=== PATIENT | female | born 1940 | race Two or more races ===

== ENCOUNTER 2022-03-13 12:27 | Inpatient (IN) | payer MEDICARE, MEDICAID ==
[~2022-03-13] VITALS: Ht 167.6 cm; Wt 78.1 kg
[2022-03-13] MEDS ORDERED: IPRATROPIUM BROM 0.5 MG/2.5ML INH SOL NEB ONE (13:00)
[2022-03-13] MEDS ORDERED: MAGNESIUM SULFATE 1GM/100ML 100 ML IV ONE (13:00)
[2022-03-13] MEDS ORDERED: ALBUTEROL SULF 2.5 MG/0.5ML(0.5%) NEB SOLN NEB ONE (13:00)
[2022-03-13] MEDS ORDERED: methylPREDNISolone SOD SUCC 125 MG/2 ML VL IV ONE (13:00)
[2022-03-13] MEDS ORDERED: ALBUTEROL MEDNEB 2.5 mg/3ml NEB ONE (13:13)
[2022-03-13 13:49] LABS: Basophils # (auto) 0.1 10 ^3/uL (0-0.2); Basophils % (auto) 1.1 % (0.0-2.0); Eosinophils # (auto) 0.1 10 ^3/uL (0-0.8); Eosinophils % (auto) 1.2 % (0.0-7.0); Hemoglobin 9.8 g/dL (12.2-16.2); Lymphocytes # (auto) 1.2 10 ^3/uL (0.4-5.4); Lymphocytes % (auto) 10.8 % (10.0-50.0); Mean Corpuscular Hemoglobin 28.3 pg (28.0-32.0); Mean Corpuscular Hgb Conc. 31.7 g/dL (32.0-36.0); Monocytes # (auto) 1.2 10 ^3/uL (0-1.3); Monocytes % (auto) 10.2 % (0.0-12.0); Neutrophils # (auto) 8.8 10 ^3/uL (1.6-8.6); Neutrophils % (auto) 76.7 % (37.0-80.0); Nucleated Red Blood Cells % 0.1 %; Red Blood Cells 3.48 10^6/uL (4.0-5.20); White Blood Cell 11.4 10^3/uL (4.4-10.8)
[2022-03-13 14:02] LABS: Calcium 8.9 mg/dL (8.5-10.1); Potassium 4.6 mmol/L (3.5-5.1)
[2022-03-13 14:05] LABS: Albumin 3.1 g/dL (3.4-5.0); BUN/Creatinine Ratio 17.1
[2022-03-13 14:08] LABS: Bilirubin, Total 0.5 mg/dL (0.2-1.0); Total Protein 6.6 g/dL (6.4-8.2)
[2022-03-13] MEDS ORDERED: NITROGLYCERIN 0.4 MG SL TAB SL PRN (14:45)
[2022-03-13] MEDS ORDERED: MORPHINE SULFATE INJ 2 MG/ml SYRG IV PRN (14:45)
[2022-03-13 17:13] LABS: Urine Bacteria NONE SEEN /hpf (None Seen); Urine Blood Negative /uL (Negative); Urine Hyaline Cast FEW /lpf (0 - 2); Urine Specific Gravity 1.018 (1.001-1.035); Urine WBC 3 /hpf (0 - 5)
[2022-03-13] MEDS: Ensure Enlive Strawberry 8oz Bottle PO SCH (18:00)
[2022-03-13] MEDS: IPRATROPIUM BROM 0.5 MG/2.5ML INH SOL NEB SCH (18:37)
[2022-03-13] MEDS: LEVALBUTEROL HCL 1.25 MG/3 ML NEB NEB SCH (18:37)
[2022-03-13] MEDS: SACUBITRIL-VALSARTAN 24mg/26mg TAB PO SCH (22:00)
[2022-03-13] MEDS: RANOLAZINE ER 500 MG TAB PO SCH (22:00)
[2022-03-13] MEDS: ENOXAPARIN SOD 100 MG/1 ML SYRINGE SC SCH (22:00)
[2022-03-13] MEDS: methylPREDNISolone SOD SUCC 40 MG/ML VL IV SCH (22:00)
[2022-03-13] MEDS: METOPROLOL TARTRATE 25 MG TAB PO SCH (22:00)
[2022-03-13] MEDS: BUDESONIDE (INHALATION) 0.5 MG/2 ML NEB NEB SCH (23:13)
[2022-03-14] MEDS: IPRATROPIUM BROM 0.5 MG/2.5ML INH SOL NEB SCH ×5 (00:32→18:56)
[2022-03-14] MEDS: LEVALBUTEROL HCL 1.25 MG/3 ML NEB NEB SCH ×5 (00:32→18:56)
[2022-03-14 00:34] VITALS: BP 98/39
[2022-03-14] MEDS: BUDESONIDE (INHALATION) 0.5 MG/2 ML NEB NEB SCH ×2 (06:20→18:57)
[2022-03-14] MEDS: Ensure Enlive Strawberry 8oz Bottle PO SCH ×3 (09:16→18:32)
[2022-03-14] MEDS: CLOPIDOGREL BISULFATE 75 MG TAB PO SCH (09:27)
[2022-03-14] MEDS: SACUBITRIL-VALSARTAN 24mg/26mg TAB PO SCH (09:27)
[2022-03-14] MEDS: methylPREDNISolone SOD SUCC 40 MG/ML VL IV SCH (09:27)
[2022-03-14] MEDS: RANOLAZINE ER 500 MG TAB PO SCH ×2 (09:27→21:34)
[2022-03-14] MEDS: PANTOPRAZOLE 40 MG TAB PO SCH (09:27)
[2022-03-14] MEDS: ENOXAPARIN SOD 100 MG/1 ML SYRINGE SC SCH ×2 (09:28→21:34)
[2022-03-14] MEDS: METOPROLOL TARTRATE 25 MG TAB PO SCH ×2 (09:29→09:34)
[2022-03-14] MEDS ORDERED: FUROSEMIDE 20 MG/2 ML VIAL IV SCH (10:00)
[2022-03-14 11:28] LABS: BUN/Creatinine Ratio 17.6; Calcium 8.7 mg/dL (8.5-10.1); Potassium 4.4 mmol/L (3.5-5.1)
[2022-03-14] MEDS ORDERED: cefTRIAXone 1GM/50ML D5W 50 ML IV ONE (13:15)
[2022-03-14] MEDS ORDERED: AZITHROMYCIN 250 MG TAB PO ONE (13:15)
[2022-03-14 13:18] LABS: Basophils # (auto) 0 10 ^3/uL (0-0.2); Basophils % (auto) 0.5 % (0.0-2.0); Eosinophils # (auto) 0 10 ^3/uL (0-0.8); Hemoglobin 9.1 g/dL (12.2-16.2); Lymphocytes # (auto) 0.3 10 ^3/uL (0.4-5.4); Mean Corpuscular Hgb Conc. 33.6 g/dL (32.0-36.0); Mean Corpuscular Volume 89.3 fL (80.0-100.0); Monocytes # (auto) 0.4 10 ^3/uL (0-1.3); Monocytes % (auto) 5.4 % (0.0-12.0); Neutrophils % (auto) 89.1 % (37.0-80.0); Nucleated Red Blood Cells % 0.1 %; Red Blood Cells 3.02 10^6/uL (4.0-5.20); Red Cell Distribution Width 14.3 % (11.8-14.3); White Blood Cell 6.7 10^3/uL (4.4-10.8)
[2022-03-14 17:00] VITALS: BP 104/45
[2022-03-14] MEDS ORDERED: NEBI5TAB2 PO (17:24)
[2022-03-14] MEDS ORDERED: CLOP75TA70 PO (17:24)
[2022-03-14] MEDS ORDERED: SACU1TAB PO (17:24)
[2022-03-14] MEDS ORDERED: RANO500T2 PO (17:24)
[2022-03-14 22:00] VITALS: BP 94/36
[2022-03-14] MEDS ORDERED: methylPREDNISolone SOD SUCC 40 MG/ML VL IV SCH (22:00)
[2022-03-14 22:05] VITALS: BP 99/41
[2022-03-15] MEDS: LEVALBUTEROL HCL 1.25 MG/3 ML NEB NEB SCH ×5 (00:31→18:55)
[2022-03-15] MEDS: IPRATROPIUM BROM 0.5 MG/2.5ML INH SOL NEB SCH ×5 (00:31→18:55)
[2022-03-15 05:00] VITALS: BP 114/44
[2022-03-15] MEDS: BUDESONIDE (INHALATION) 0.5 MG/2 ML NEB NEB SCH ×2 (06:20→18:55)
[2022-03-15 06:30] LABS: Basophils # (auto) 0 10 ^3/uL (0-0.2); Basophils % (auto) 0.1 % (0.0-2.0); Eosinophils # (auto) 0 10 ^3/uL (0-0.8); Hematocrit 27.2 % (36.0-46.0); Hemoglobin 8.8 g/dL (12.2-16.2); Lymphocytes # (auto) 0.5 10 ^3/uL (0.4-5.4); Lymphocytes % (auto) 4.5 % (10.0-50.0); Mean Corpuscular Hemoglobin 28.6 pg (28.0-32.0); Mean Corpuscular Hgb Conc. 32.2 g/dL (32.0-36.0); Mean Corpuscular Volume 88.7 fL (80.0-100.0); Monocytes # (auto) 0.6 10 ^3/uL (0-1.3); Monocytes % (auto) 4.9 % (0.0-12.0); Neutrophils # (auto) 10.8 10 ^3/uL (1.6-8.6); Neutrophils % (auto) 90.5 % (37.0-80.0); Red Blood Cells 3.06 10^6/uL (4.0-5.20); White Blood Cell 11.9 10^3/uL (4.4-10.8)
[2022-03-15 06:54] LABS: Potassium 5.2 mmol/L (3.5-5.1)
[2022-03-15 07:08] LABS: BUN/Creatinine Ratio 31.4; Calcium 8.8 mg/dL (8.5-10.1)
[2022-03-15 09:00] VITALS: BP 104/58
[2022-03-15] MEDS: PANTOPRAZOLE 40 MG TAB PO SCH ×2 (09:46→21:44)
[2022-03-15] MEDS: RANOLAZINE ER 500 MG TAB PO SCH ×2 (09:46→21:43)
[2022-03-15] MEDS: AZITHROMYCIN 250 MG TAB PO SCH (09:46)
[2022-03-15] MEDS: CLOPIDOGREL BISULFATE 75 MG TAB PO SCH (09:46)
[2022-03-15] MEDS: cefTRIAXone 1GM/50ML D5W 50 ML IV SCH (09:47)
[2022-03-15] MEDS: Ensure Enlive Strawberry 8oz Bottle PO SCH ×3 (09:48→18:11)
[2022-03-15] MEDS ORDERED: ENOXAPARIN SOD 80 MG/0.8ML SYRINGE SC SCH (10:00)
[2022-03-15] MEDS ORDERED: predniSONE 5 MG TAB PO ONE (11:00)
[2022-03-15] MEDS ORDERED: SODIUM ZIRCONIUM CYCL 10 GM PAK PO ONE (11:00)
[2022-03-15 13:00] VITALS: BP 99/49
[2022-03-15] MEDS: NEBIVOLOL 2.5 MG TABLET PO SCH (16:30)
[2022-03-15 17:00] VITALS: BP 123/41
[2022-03-15] MEDS ORDERED: SODIUM CHLORIDE 0.9% 500 ML IV ONE (19:30)
[2022-03-15] MEDS ORDERED: dilTIAZem 25 MG/5 ML VIAL IV ONE (19:30)
[2022-03-15] MEDS: ENOXAPARIN SOD 60 MG/0.6 ML SYRINGE SC SCH (21:43)
[2022-03-15 22:00] VITALS: BP 104/63
[2022-03-16] MEDS: BUDESONIDE (INHALATION) 0.5 MG/2 ML NEB NEB SCH ×3 (00:28→18:11)
[2022-03-16] MEDS: LEVALBUTEROL HCL 1.25 MG/3 ML NEB NEB SCH ×4 (00:28→18:11)
[2022-03-16] MEDS: IPRATROPIUM BROM 0.5 MG/2.5ML INH SOL NEB SCH ×4 (00:28→18:10)
[2022-03-16 05:00] VITALS: BP 101/41
[2022-03-16 06:06] LABS: Basophils # (auto) 0 10 ^3/uL (0-0.2); Basophils % (auto) 0.1 % (0.0-2.0); Eosinophils # (auto) 0 10 ^3/uL (0-0.8); Eosinophils % (auto) 0.2 % (0.0-7.0); Hematocrit 26.7 % (36.0-46.0); Hemoglobin 8.6 g/dL (12.2-16.2); Lymphocytes # (auto) 1.3 10 ^3/uL (0.4-5.4); Lymphocytes % (auto) 13.6 % (10.0-50.0); Mean Corpuscular Hemoglobin 29.1 pg (28.0-32.0); Mean Corpuscular Hgb Conc. 32.1 g/dL (32.0-36.0); Mean Corpuscular Volume 90.6 fL (80.0-100.0); Monocytes # (auto) 1.3 10 ^3/uL (0-1.3); Monocytes % (auto) 13.7 % (0.0-12.0); Neutrophils # (auto) 7.1 10 ^3/uL (1.6-8.6); Neutrophils % (auto) 72.4 % (37.0-80.0); Nucleated Red Blood Cells % 0.1 %; Red Blood Cells 2.95 10^6/uL (4.0-5.20); Red Cell Distribution Width 14.8 % (11.8-14.3); White Blood Cell 9.7 10^3/uL (4.4-10.8)
[2022-03-16 06:35] LABS: BUN/Creatinine Ratio 43.8; Calcium 8.6 mg/dL (8.5-10.1)
[2022-03-16 09:00] VITALS: BP 121/39
[2022-03-16] MEDS: ENOXAPARIN SOD 60 MG/0.6 ML SYRINGE SC SCH (10:00)
[2022-03-16] MEDS: PANTOPRAZOLE 40 MG TAB PO SCH (10:00)
[2022-03-16] MEDS: Ensure Enlive Strawberry 8oz Bottle PO SCH ×3 (10:01→18:39)
[2022-03-16] MEDS: cefTRIAXone 1GM/50ML D5W 50 ML IV SCH (10:02)
[2022-03-16] MEDS: predniSONE 5 MG TAB PO SCH (10:02)
[2022-03-16] MEDS: AZITHROMYCIN 250 MG TAB PO SCH (10:03)
[2022-03-16] MEDS: RANOLAZINE ER 500 MG TAB PO SCH ×2 (10:03→21:41)
[2022-03-16] MEDS: CLOPIDOGREL BISULFATE 75 MG TAB PO SCH (10:04)
[2022-03-16] MEDS: NEBIVOLOL 2.5 MG TABLET PO SCH (10:11)
[2022-03-16] MEDS ORDERED: PANTOPRAZOLE 40 MG/10 ML VIAL INJ IV ONE (11:45)
[2022-03-16 12:37] VITALS: BP 101/46
[2022-03-16] MEDS: AMIODARONE HCL 200 MG TAB PO SCH (14:21)
[2022-03-16 17:00] VITALS: BP 110/48
[2022-03-16] MEDS: ATORVASTATIN 20 MG TAB PO SCH (21:41)
[2022-03-16] MEDS: PANTOPRAZOLE 40 MG/10 ML VIAL INJ IV SCH (21:42)
[2022-03-16 22:00] VITALS: BP 119/73
[2022-03-16 23:40] VITALS: BP 119/73
[2022-03-17] VITALS (10 sets, daily range): BP systolic 96–135; BP diastolic 31–82
[2022-03-17] MEDS: IPRATROPIUM BROM 0.5 MG/2.5ML INH SOL NEB SCH ×5 (00:29→18:25)
[2022-03-17] MEDS: LEVALBUTEROL HCL 1.25 MG/3 ML NEB NEB SCH ×5 (00:29→18:25)
[2022-03-17] MEDS: BUDESONIDE (INHALATION) 0.5 MG/2 ML NEB NEB SCH ×2 (06:22→18:25)
[2022-03-17 07:30] LABS: INR 0.96 (0.9-1.15); Partial Thromboplastin Time < 20.0 sec (24.6-33.4)
[2022-03-17 07:32] LABS: Basophils # (auto) 0 10 ^3/uL (0-0.2); Eosinophils # (auto) 0.1 10 ^3/uL (0-0.8); Eosinophils % (auto) 1.7 % (0.0-7.0); Hematocrit 23.9 % (36.0-46.0); Hemoglobin 7.8 g/dL (12.2-16.2); Monocytes # (auto) 0.8 10 ^3/uL (0-1.3)
[2022-03-17 07:35] LABS: Basophils % (auto) 0.3 % (0.0-2.0); Lymphocytes # (auto) 1.2 10 ^3/uL (0.4-5.4); Lymphocytes % (auto) 18.1 % (10.0-50.0); Mean Corpuscular Hemoglobin 29.1 pg (28.0-32.0); Mean Corpuscular Hgb Conc. 32.6 g/dL (32.0-36.0); Mean Corpuscular Volume 89.2 fL (80.0-100.0); Monocytes % (auto) 11.5 % (0.0-12.0); Neutrophils # (auto) 4.5 10 ^3/uL (1.6-8.6); Neutrophils % (auto) 68.4 % (37.0-80.0); Red Blood Cells 2.68 10^6/uL (4.0-5.20); Red Cell Distribution Width 14.5 % (11.8-14.3); White Blood Cell 6.6 10^3/uL (4.4-10.8)
[2022-03-17 07:44] LABS: Albumin 2.7 g/dL (3.4-5.0); Calcium 8.2 mg/dL (8.5-10.1); Potassium 4.8 mmol/L (3.5-5.1)
[2022-03-17 07:47] LABS: Bilirubin, Total 0.2 mg/dL (0.2-1.0); Total Protein 5.4 g/dL (6.4-8.2)
[2022-03-17] MEDS: Ensure Enlive Strawberry 8oz Bottle PO SCH ×3 (08:28→18:42)
[2022-03-17] MEDS: cefTRIAXone 1GM/50ML D5W 50 ML IV SCH (09:00)
[2022-03-17] MEDS: PANTOPRAZOLE 40 MG/10 ML VIAL INJ IV SCH ×2 (10:00→21:41)
[2022-03-17] MEDS ORDERED: fentaNYL CITRATE 100 MCG/2 ML VL ONE (10:22)
[2022-03-17] MEDS ORDERED: LIDOCAINE 2%HCL (LOCAL ANESTH.) INJ 20ML MDV ONE (10:23)
[2022-03-17] MEDS ORDERED: IODIXANOL 320MG/ML 100ML BTL IV ONE (10:23)
[2022-03-17] MEDS ORDERED: MIDAZOLAM HCL 2MG/2ML 2ml VIAL (1mg/ml) ONE (10:23)
[2022-03-17] MEDS ORDERED: SODIUM FERR GLUC 62.5MG/5ML 125 MG in SODIUM CHL 0.9% 100 ML IV ONE (11:45)
[2022-03-17] MEDS: NEBIVOLOL 2.5 MG TABLET PO SCH (15:29)
[2022-03-17] MEDS: predniSONE 5 MG TAB PO SCH (16:21)
[2022-03-17] MEDS: AZITHROMYCIN 250 MG TAB PO SCH (16:21)
[2022-03-17] MEDS: RANOLAZINE ER 500 MG TAB PO SCH ×2 (16:21→21:40)
[2022-03-17] MEDS: AMIODARONE HCL 200 MG TAB PO SCH (16:21)
[2022-03-17] MEDS ORDERED: ALBUTEROL MEDNEB 2.5 mg/3ml NEB ONE (16:35)
[2022-03-17] MEDS: ALBUTEROL SULF 2.5 MG/0.5ML(0.5%) NEB SOLN NEB PRN (16:37)
[2022-03-17] MEDS: ATORVASTATIN 20 MG TAB PO SCH (21:41)
[2022-03-18 05:00] VITALS: BP 123/64
[2022-03-18] MEDS: BUDESONIDE (INHALATION) 0.5 MG/2 ML NEB NEB SCH ×2 (05:58→18:04)
[2022-03-18] MEDS: LEVALBUTEROL HCL 1.25 MG/3 ML NEB NEB SCH ×4 (05:59→18:04)
[2022-03-18] MEDS: IPRATROPIUM BROM 0.5 MG/2.5ML INH SOL NEB SCH ×4 (05:59→18:04)
[2022-03-18 07:13] LABS: Basophils # (auto) 0 10 ^3/uL (0-0.2); Basophils % (auto) 0.1 % (0.0-2.0); Eosinophils # (auto) 0.1 10 ^3/uL (0-0.8); Lymphocytes # (auto) 1.4 10 ^3/uL (0.4-5.4); Monocytes # (auto) 0.9 10 ^3/uL (0-1.3); Nucleated Red Blood Cells % 0.1 %; Red Cell Distribution Width 14.5 % (11.8-14.3)
[2022-03-18 07:14] LABS: Eosinophils % (auto) 0.7 % (0.0-7.0); Hematocrit 23.7 % (36.0-46.0); Hemoglobin 7.7 g/dL (12.2-16.2); Mean Corpuscular Hemoglobin 29.2 pg (28.0-32.0); Mean Corpuscular Hgb Conc. 32.4 g/dL (32.0-36.0); Mean Corpuscular Volume 90.1 fL (80.0-100.0); Monocytes % (auto) 10.4 % (0.0-12.0); Neutrophils # (auto) 6.1 10 ^3/uL (1.6-8.6); Neutrophils % (auto) 72.8 % (37.0-80.0); Red Blood Cells 2.63 10^6/uL (4.0-5.20); White Blood Cell 8.4 10^3/uL (4.4-10.8)
[2022-03-18 08:00] VITALS: BP 111/47
[2022-03-18] MEDS: Ensure Enlive Strawberry 8oz Bottle PO SCH ×3 (08:00→18:30)
[2022-03-18 09:00] VITALS: BP 111/47
[2022-03-18] MEDS: PANTOPRAZOLE 40 MG/10 ML VIAL INJ IV SCH ×2 (10:00→21:20)
[2022-03-18] MEDS: AMIODARONE HCL 200 MG TAB PO SCH ×2 (10:00→21:23)
[2022-03-18] MEDS: AZITHROMYCIN 250 MG TAB PO SCH (10:14)
[2022-03-18] MEDS: RANOLAZINE ER 500 MG TAB PO SCH ×2 (10:14→21:21)
[2022-03-18] MEDS: predniSONE 5 MG TAB PO SCH (10:14)
[2022-03-18] MEDS: NEBIVOLOL 2.5 MG TABLET PO SCH (10:28)
[2022-03-18 13:00] VITALS: BP 100/43
[2022-03-18 13:43] LABS: Hematocrit 23.9 % (36.0-46.0); Hemoglobin 7.6 g/dL (12.2-16.2)
[2022-03-18] MEDS: cefTRIAXone 1GM/50ML D5W 50 ML IV SCH (14:10)
[2022-03-18] MEDS: SODIUM FERR GLUC 62.5MG/5ML 125 MG in SODIUM CHL 0.9% 100 ML IV SCH (15:05)
[2022-03-18 16:59] VITALS: BP 106/38
[2022-03-18] MEDS ORDERED: METOPROLOL TARTRATE 1MG/1ML-5ML VIAL IV PRN (17:30)
[2022-03-18] MEDS: METOPROLOL TARTRATE 50 MG TAB PO SCH ×2 (17:30→21:23)
[2022-03-18 19:45] LABS: Hematocrit 24.7 % (36.0-46.0); Hemoglobin 7.6 g/dL (12.2-16.2)
[2022-03-18] MEDS: ATORVASTATIN 20 MG TAB PO SCH (21:21)
[2022-03-18 22:00] VITALS: BP 113/72
[2022-03-19] MEDS: IPRATROPIUM BROM 0.5 MG/2.5ML INH SOL NEB SCH ×4 (00:19→18:11)
[2022-03-19] MEDS: LEVALBUTEROL HCL 1.25 MG/3 ML NEB NEB SCH ×4 (00:20→18:11)
[2022-03-19 05:00] VITALS: BP 106/49
[2022-03-19] MEDS: AMIODARONE HCL 200 MG TAB PO SCH ×2 (06:00→14:00)
[2022-03-19 06:39] LABS: Basophils # (auto) 0 10 ^3/uL (0-0.2); Basophils % (auto) 0.2 % (0.0-2.0); Eosinophils # (auto) 0.1 10 ^3/uL (0-0.8); Eosinophils % (auto) 1.3 % (0.0-7.0); Hematocrit 21.9 % (36.0-46.0); Hemoglobin 7.3 g/dL (12.2-16.2); Lymphocytes # (auto) 1.5 10 ^3/uL (0.4-5.4); Lymphocytes % (auto) 14.1 % (10.0-50.0); Mean Corpuscular Hemoglobin 30.1 pg (28.0-32.0); Mean Corpuscular Hgb Conc. 33.3 g/dL (32.0-36.0); Mean Corpuscular Volume 90.3 fL (80.0-100.0); Monocytes # (auto) 1.1 10 ^3/uL (0-1.3); Monocytes % (auto) 9.8 % (0.0-12.0); Neutrophils # (auto) 8.2 10 ^3/uL (1.6-8.6); Neutrophils % (auto) 74.6 % (37.0-80.0); Nucleated Red Blood Cells % 0.1 %; Red Blood Cells 2.42 10^6/uL (4.0-5.20); Red Cell Distribution Width 14.6 % (11.8-14.3); White Blood Cell 10.9 10^3/uL (4.4-10.8)
[2022-03-19 06:55] LABS: Albumin 2.6 g/dL (3.4-5.0); BUN/Creatinine Ratio 38.4; Calcium 8.2 mg/dL (8.5-10.1); Potassium 4.6 mmol/L (3.5-5.1)
[2022-03-19 06:58] LABS: Bilirubin, Total 0.1 mg/dL (0.2-1.0); Total Protein 5.4 g/dL (6.4-8.2)
[2022-03-19] MEDS: BUDESONIDE (INHALATION) 0.5 MG/2 ML NEB NEB SCH (08:04)
[2022-03-19] MEDS: Ensure Enlive Strawberry 8oz Bottle PO SCH ×3 (08:25→18:35)
[2022-03-19 09:00] VITALS: BP 112/46
[2022-03-19] MEDS: AZITHROMYCIN 250 MG TAB PO SCH (09:28)
[2022-03-19] MEDS: RANOLAZINE ER 500 MG TAB PO SCH ×2 (09:28→21:30)
[2022-03-19] MEDS: predniSONE 5 MG TAB PO SCH (09:29)
[2022-03-19] MEDS: METOPROLOL TARTRATE 50 MG TAB PO SCH (10:00)
[2022-03-19] MEDS: PANTOPRAZOLE 40 MG/10 ML VIAL INJ IV SCH ×2 (10:00→21:31)
[2022-03-19 13:00] VITALS: BP 112/45
[2022-03-19] MEDS ORDERED: ALBUTEROL MEDNEB 2.5 mg/3ml NEB ONE (13:04)
[2022-03-19] MEDS: cefTRIAXone 1GM/50ML D5W 50 ML IV SCH (14:20)
[2022-03-19] MEDS: SODIUM FERR GLUC 62.5MG/5ML 125 MG in SODIUM CHL 0.9% 100 ML IV SCH (16:35)
[2022-03-19 17:00] VITALS: BP 107/41
[2022-03-19 18:00] VITALS: BP 112/46
[2022-03-19] MEDS: ATORVASTATIN 20 MG TAB PO SCH (21:31)
[2022-03-19 21:39] VITALS: BP 128/53
[2022-03-20] VITALS (7 sets, daily range): BP systolic 100–117; BP diastolic 39–47
[2022-03-20] MEDS: BUDESONIDE (INHALATION) 0.5 MG/2 ML NEB NEB SCH ×3 (00:29→19:19)
[2022-03-20] MEDS: IPRATROPIUM BROM 0.5 MG/2.5ML INH SOL NEB SCH ×4 (00:30→19:19)
[2022-03-20] MEDS: LEVALBUTEROL HCL 1.25 MG/3 ML NEB NEB SCH ×4 (00:30→19:19)
[2022-03-20] MEDS: Ensure Enlive Strawberry 8oz Bottle PO SCH ×3 (08:30→18:30)
[2022-03-20] MEDS: predniSONE 5 MG TAB PO SCH (09:40)
[2022-03-20] MEDS: AZITHROMYCIN 250 MG TAB PO SCH (09:40)
[2022-03-20] MEDS: RANOLAZINE ER 500 MG TAB PO SCH ×2 (09:40→21:44)
[2022-03-20] MEDS: NEBIVOLOL 2.5 MG PO SCH (11:00)
[2022-03-20 14:13] LABS: Hematocrit 21.6 % (36.0-46.0)
[2022-03-20 14:15] LABS: Hemoglobin 7.1 g/dL (12.2-16.2)
[2022-03-20] MEDS: SODIUM FERR GLUC 62.5MG/5ML 125 MG in SODIUM CHL 0.9% 100 ML IV SCH (15:48)
[2022-03-20] MEDS: ceFAZolin 1GM/50ML 50 ML IV SCH ×2 (17:30→21:44)
[2022-03-20] MEDS: PANTOPRAZOLE 40 MG TAB PO SCH ×2 (21:44→22:04)
[2022-03-20] MEDS: ATORVASTATIN 20 MG TAB PO SCH (21:44)
[2022-03-21] VITALS (11 sets, daily range): BP systolic 94–122; BP diastolic 42–87
[2022-03-21] MEDS: IPRATROPIUM BROM 0.5 MG/2.5ML INH SOL NEB SCH ×3 (00:12→18:11)
[2022-03-21] MEDS: LEVALBUTEROL HCL 1.25 MG/3 ML NEB NEB SCH ×3 (00:12→18:11)
[2022-03-21] MEDS: ceFAZolin 1GM/50ML 50 ML IV SCH ×3 (06:09→21:36)
[2022-03-21 06:25] LABS: Basophils # (auto) 0.1 10 ^3/uL (0-0.2); Eosinophils # (auto) 0.2 10 ^3/uL (0-0.8); Hematocrit 21.3 % (36.0-46.0); Lymphocytes # (auto) 1.6 10 ^3/uL (0.4-5.4); Lymphocytes % (auto) 16.2 % (10.0-50.0); Mean Corpuscular Hgb Conc. 31.8 g/dL (32.0-36.0); Neutrophils # (auto) 7.1 10 ^3/uL (1.6-8.6); Red Cell Distribution Width 15.5 % (11.8-14.3)
[2022-03-21 06:31] LABS: Basophils % (auto) 0.8 % (0.0-2.0); Eosinophils % (auto) 1.7 % (0.0-7.0); Mean Corpuscular Hemoglobin 29.9 pg (28.0-32.0); Mean Corpuscular Volume 94.1 fL (80.0-100.0); Monocytes # (auto) 1.1 10 ^3/uL (0-1.3); Monocytes % (auto) 10.6 % (0.0-12.0); Neutrophils % (auto) 70.7 % (37.0-80.0); Nucleated Red Blood Cells % 0.2 %; Red Blood Cells 2.27 10^6/uL (4.0-5.20)
[2022-03-21 06:36] LABS: BUN/Creatinine Ratio 52.6; Calcium 8.2 mg/dL (8.5-10.1); Potassium 4.7 mmol/L (3.5-5.1)
[2022-03-21 06:50] LABS: Hemoglobin 6.8 g/dL (12.2-16.2)
[2022-03-21] MEDS: Ensure Enlive Strawberry 8oz Bottle PO SCH ×3 (08:30→18:25)
[2022-03-21] MEDS: PANTOPRAZOLE 40 MG TAB PO SCH ×2 (11:03→21:35)
[2022-03-21] MEDS: NEBIVOLOL 2.5 MG PO SCH (11:04)
[2022-03-21] MEDS: predniSONE 5 MG TAB PO SCH (11:04)
[2022-03-21] MEDS: RANOLAZINE ER 500 MG TAB PO SCH ×2 (11:04→21:35)
[2022-03-21] MEDS: BUDESONIDE (INHALATION) 0.5 MG/2 ML NEB NEB SCH ×2 (15:33→18:11)
[2022-03-21] MEDS: SODIUM FERR GLUC 62.5MG/5ML 125 MG in SODIUM CHL 0.9% 100 ML IV SCH (18:10)
[2022-03-21] MEDS: ATORVASTATIN 20 MG TAB PO SCH (21:36)
[2022-03-22] MEDS: LEVALBUTEROL HCL 1.25 MG/3 ML NEB NEB SCH ×4 (00:15→18:52)
[2022-03-22] MEDS: IPRATROPIUM BROM 0.5 MG/2.5ML INH SOL NEB SCH ×4 (00:15→18:52)
[2022-03-22 05:00] VITALS: BP 103/49
[2022-03-22] MEDS: ceFAZolin 1GM/50ML 50 ML IV SCH ×3 (06:07→22:10)
[2022-03-22 06:23] LABS: Basophils # (auto) 0.1 10 ^3/uL (0-0.2); Eosinophils # (auto) 0.1 10 ^3/uL (0-0.8); Hemoglobin 8.1 g/dL (12.2-16.2); Lymphocytes # (auto) 1.5 10 ^3/uL (0.4-5.4); Mean Corpuscular Volume 92.1 fL (80.0-100.0); Neutrophils # (auto) 7.3 10 ^3/uL (1.6-8.6)
[2022-03-22 06:25] LABS: Basophils % (auto) 0.9 % (0.0-2.0); Eosinophils % (auto) 1.1 % (0.0-7.0); Hematocrit 24.6 % (36.0-46.0); Lymphocytes % (auto) 14.7 % (10.0-50.0); Mean Corpuscular Hemoglobin 30.4 pg (28.0-32.0); Monocytes # (auto) 1.2 10 ^3/uL (0-1.3); Monocytes % (auto) 11.4 % (0.0-12.0); Neutrophils % (auto) 71.9 % (37.0-80.0); Nucleated Red Blood Cells % 0.2 %; Red Blood Cells 2.67 10^6/uL (4.0-5.20); Red Cell Distribution Width 15.1 % (11.8-14.3); White Blood Cell 10.2 10^3/uL (4.4-10.8)
[2022-03-22 06:32] LABS: BUN/Creatinine Ratio 43.4; Calcium 8.1 mg/dL (8.5-10.1); Potassium 4.7 mmol/L (3.5-5.1)
[2022-03-22] MEDS: Ensure Enlive Strawberry 8oz Bottle PO SCH ×3 (08:00→17:50)
[2022-03-22] MEDS: RANOLAZINE ER 500 MG TAB PO SCH ×2 (08:23→22:10)
[2022-03-22] MEDS: predniSONE 5 MG TAB PO SCH (08:23)
[2022-03-22] MEDS: PANTOPRAZOLE 40 MG TAB PO SCH ×2 (08:23→22:10)
[2022-03-22] MEDS: NEBIVOLOL 2.5 MG PO SCH (08:24)
[2022-03-22 09:00] VITALS: BP 111/57
[2022-03-22] MEDS: BUDESONIDE (INHALATION) 0.5 MG/2 ML NEB NEB SCH ×2 (09:32→18:52)
[2022-03-22] MEDS ORDERED: FUROSEMIDE 20 MG/2 ML VIAL IV ONE (12:00)
[2022-03-22 13:00] VITALS: BP 102/67
[2022-03-22] MEDS ORDERED: fentaNYL CITRATE 100 MCG/2 ML VL ONE (14:14)
[2022-03-22] MEDS ORDERED: MIDAZOLAM HCL 2MG/2ML 2ml VIAL (1mg/ml) ONE (14:14)
[2022-03-22 17:00] VITALS: BP 104/60
[2022-03-22] MEDS: SODIUM FERR GLUC 62.5MG/5ML 125 MG in SODIUM CHL 0.9% 100 ML IV SCH (17:50)
[2022-03-22] MEDS: SUCRALFATE 1 GM/10 ML ORAL SUSP PO SCH (18:02)
[2022-03-22 22:00] VITALS: BP 102/56
[2022-03-22] MEDS: ATORVASTATIN 20 MG TAB PO SCH (22:10)
[2022-03-23] MEDS: LEVALBUTEROL HCL 1.25 MG/3 ML NEB NEB SCH ×5 (00:26→19:30)
[2022-03-23] MEDS: IPRATROPIUM BROM 0.5 MG/2.5ML INH SOL NEB SCH ×4 (00:26→19:29)
[2022-03-23 02:41] VITALS: BP 102/56
[2022-03-23 05:21] VITALS: BP 94/46
[2022-03-23] MEDS: ceFAZolin 1GM/50ML 50 ML IV SCH (06:04)
[2022-03-23 06:06] LABS: Basophils # (auto) 0.1 10 ^3/uL (0-0.2); Basophils % (auto) 0.7 % (0.0-2.0); Eosinophils # (auto) 0.1 10 ^3/uL (0-0.8); Eosinophils % (auto) 1.2 % (0.0-7.0); Hemoglobin 7.9 g/dL (12.2-16.2); Mean Corpuscular Hgb Conc. 31.7 g/dL (32.0-36.0); Nucleated Red Blood Cells % 0.1 %; Red Blood Cells 2.64 10^6/uL (4.0-5.20); White Blood Cell 9.8 10^3/uL (4.4-10.8)
[2022-03-23] MEDS: SUCRALFATE 1 GM/10 ML ORAL SUSP PO SCH ×2 (06:06→17:14)
[2022-03-23 06:09] LABS: Lymphocytes # (auto) 1.5 10 ^3/uL (0.4-5.4); Lymphocytes % (auto) 14.8 % (10.0-50.0); Mean Corpuscular Volume 94.7 fL (80.0-100.0); Monocytes # (auto) 1.1 10 ^3/uL (0-1.3); Monocytes % (auto) 11.4 % (0.0-12.0); Neutrophils % (auto) 71.9 % (37.0-80.0); Red Cell Distribution Width 15.5 % (11.8-14.3)
[2022-03-23 06:28] LABS: BUN/Creatinine Ratio 38.2; Calcium 7.8 mg/dL (8.5-10.1); Potassium 4.2 mmol/L (3.5-5.1)
[2022-03-23] MEDS: BUDESONIDE (INHALATION) 0.5 MG/2 ML NEB NEB SCH ×2 (07:06→19:29)
[2022-03-23 09:00] VITALS: BP 103/49
[2022-03-23] MEDS: PANTOPRAZOLE 40 MG TAB PO SCH ×2 (09:04→21:39)
[2022-03-23] MEDS: RANOLAZINE ER 500 MG TAB PO SCH ×2 (09:05→21:39)
[2022-03-23] MEDS: predniSONE 5 MG TAB PO SCH (09:05)
[2022-03-23] MEDS: NEBIVOLOL 2.5 MG PO SCH (09:06)
[2022-03-23] MEDS: Ensure Enlive Strawberry 8oz Bottle PO SCH ×3 (09:07→17:15)
[2022-03-23] MEDS ORDERED: FERR-20 PO (11:56)
[2022-03-23] MEDS ORDERED: CEPH-510 PO (11:56)
[2022-03-23] MEDS ORDERED: SUCR1SUS10 PO (11:56)
[2022-03-23] MEDS ORDERED: PANT40TA2 PO (11:56)
[2022-03-23] MEDS ORDERED: POTASSIUM CHL 10 Meq TABLET PO ONE (12:00)
[2022-03-23] MEDS ORDERED: FUROSEMIDE 20 MG TAB PO ONE (12:00)
[2022-03-23] MEDS: SODIUM FERR GLUC 62.5MG/5ML 125 MG in SODIUM CHL 0.9% 100 ML IV SCH (12:33)
[2022-03-23 13:00] VITALS: BP 112/65
[2022-03-23] MEDS: CEPHALEXIN 250 MG CAP PO SCH ×2 (15:25→21:39)
[2022-03-23] MEDS: MAGNESIUM SULFATE 1GM/100ML 100 ML IV SCH ×2 (15:25→17:14)
[2022-03-23] MEDS ORDERED: MAGNESIUM SULFATE 1GM/100ML 100 ML IV SCH (17:30)
[2022-03-23 17:38] VITALS: BP 117/66
[2022-03-23] MEDS: ATORVASTATIN 20 MG TAB PO SCH (21:39)
[2022-03-23] MEDS: ALBUTEROL SULF 2.5 MG/0.5ML(0.5%) NEB SOLN NEB PRN (22:24)
[2022-03-24] MEDS: IPRATROPIUM BROM 0.5 MG/2.5ML INH SOL NEB SCH ×2 (00:12→12:11)
[2022-03-24] MEDS: LEVALBUTEROL HCL 1.25 MG/3 ML NEB NEB SCH ×3 (00:12→12:11)
[2022-03-24 05:00] VITALS: BP 124/50
[2022-03-24 06:02] LABS: Basophils # (auto) 0.1 10 ^3/uL (0-0.2); Eosinophils # (auto) 0.1 10 ^3/uL (0-0.8); Eosinophils % (auto) 1.3 % (0.0-7.0); Hematocrit 24.7 % (36.0-46.0); Hemoglobin 8.1 g/dL (12.2-16.2); Lymphocytes # (auto) 1.4 10 ^3/uL (0.4-5.4); Lymphocytes % (auto) 15.5 % (10.0-50.0); Mean Corpuscular Hemoglobin 30.8 pg (28.0-32.0); Mean Corpuscular Hgb Conc. 32.7 g/dL (32.0-36.0); Mean Corpuscular Volume 94.2 fL (80.0-100.0); Monocytes % (auto) 11.1 % (0.0-12.0); Neutrophils # (auto) 6.4 10 ^3/uL (1.6-8.6); Neutrophils % (auto) 71.1 % (37.0-80.0); Nucleated Red Blood Cells % 0.1 %; Red Blood Cells 2.62 10^6/uL (4.0-5.20); Red Cell Distribution Width 15.6 % (11.8-14.3)
[2022-03-24] MEDS: CEPHALEXIN 250 MG CAP PO SCH ×2 (06:12→16:15)
[2022-03-24 06:18] LABS: BUN/Creatinine Ratio 37.5; Calcium 7.9 mg/dL (8.5-10.1); Potassium 4.6 mmol/L (3.5-5.1)
[2022-03-24] MEDS: SUCRALFATE 1 GM/10 ML ORAL SUSP PO SCH ×2 (07:05→17:00)
[2022-03-24] MEDS: ALBUTEROL SULF 2.5 MG/0.5ML(0.5%) NEB SOLN NEB PRN (07:26)
[2022-03-24] MEDS: BUDESONIDE (INHALATION) 0.5 MG/2 ML NEB NEB SCH (07:26)
[2022-03-24 09:00] VITALS: BP 100/62
[2022-03-24] MEDS ORDERED: FUROSEMIDE 20 MG TAB PO SCH (10:00)
[2022-03-24] MEDS ORDERED: POTASSIUM CHL 10 Meq TABLET PO SCH (10:00)
[2022-03-24] MEDS: NEBIVOLOL 2.5 MG PO SCH (10:54)
[2022-03-24] MEDS: predniSONE 5 MG TAB PO SCH (10:55)
[2022-03-24] MEDS: PANTOPRAZOLE 40 MG TAB PO SCH (10:55)
[2022-03-24] MEDS: RANOLAZINE ER 500 MG TAB PO SCH (10:55)
[2022-03-24] MEDS ORDERED: LEVA1NEB5 NEB (11:34)
[2022-03-24] MEDS: SODIUM FERR GLUC 62.5MG/5ML 125 MG in SODIUM CHL 0.9% 100 ML IV SCH (12:22)
[2022-03-24] MEDS: Ensure Enlive Strawberry 8oz Bottle PO SCH ×2 (12:22→13:49)
[2022-03-24 13:00] VITALS: BP 98/63
[2022-03-24 17:00] VITALS: BP 106/59
== END 2022-03-24 17:23 | disposition home health service (06) | DRG 193 ==
LOC: ER 12:27 → TELE 14:53 → TELE-EAST 03-14 16:02
PROVIDERS: ADMIT Nurse Practitioner Acute Care; ATTEND Nurse Practitioner Acute Care
PROC: 06H03DZ Insertion of Intraluminal Device into Inferior Vena Cava, Percutaneous Approach (ICD-10-PCS; principal; 2022-03-17)
PROC: 05HB33Z Insertion of Infusion Device into Right Basilic Vein, Percutaneous Approach (ICD-10-PCS; 2022-03-20)
PROC: B54MZZA Ultrasonography of Right Upper Extremity Veins, Guidance (ICD-10-PCS; 2022-03-20)
PROC: 30233N1 Transfusion of Nonautologous Red Blood Cells into Peripheral Vein, Percutaneous Approach (ICD-10-PCS; 2022-03-21)
PROC: 0DB98ZX Excision of Duodenum, Via Natural or Artificial Opening Endoscopic, Diagnostic (ICD-10-PCS; 2022-03-22)
PROC: 0DB68ZX Excision of Stomach, Via Natural or Artificial Opening Endoscopic, Diagnostic (ICD-10-PCS; 2022-03-22)
DX: J18.9 Pneumonia, unspecified organism (principal); I50.33 Acute on chronic diastolic (congestive) heart failure; J96.21 Acute and chronic respiratory failure with hypoxia; N17.0 Acute kidney failure with tubular necrosis; K29.91 Gastroduodenitis, unspecified, with bleeding; J44.1 Chronic obstructive pulmonary disease with (acute) exacerbation; I82.403 Acute embolism and thrombosis of unspecified deep veins of lower extremity, bilateral; I47.20 Ventricular tachycardia, unspecified; L03.114 Cellulitis of left upper limb; J44.0 Chronic obstructive pulmonary disease with (acute) lower respiratory infection; Z20.822 Contact with and (suspected) exposure to COVID-19; D63.8 Anemia in other chronic diseases classified elsewhere; K44.9 Diaphragmatic hernia without obstruction or gangrene; E78.5 Hyperlipidemia, unspecified; I11.0 Hypertensive heart disease with heart failure; I25.10 Atherosclerotic heart disease of native coronary artery without angina pectoris; I48.0 Paroxysmal atrial fibrillation; Z91.81 History of falling; Z95.810 Presence of automatic (implantable) cardiac defibrillator; Z79.02 Long term (current) use of antithrombotics/antiplatelets; Z79.51 Long term (current) use of inhaled steroids; Z95.5 Presence of coronary angioplasty implant and graft
CPT/HCPCS: 36415; 37191; 71045; 78582; 80048; 80053; 81001; 82270; 83735; 83880; 84484; 85014; 85018; 85025; 85379; 85610; 85730; 86850; 86900; 86901; 86920; 87426; 93005; 93306; 93970; 93971; 94640; 96365; 96367; 96372; 96375; 96376; 97110; 97116; 97163; 99152; 99291; C9113; G0378; J0690; J0696; J2250; Q9967